=== PATIENT | male | born 1960 | race Two or more races ===

== ENCOUNTER → 2024-05-20 | Outpatient (BNVA) | payer OTHER, MEDICAID, SELFPAY | END | disposition home or self-care (01) | PROVIDERS: PCP Family Medicine; Referring Provider Family Medicine; Visit Provider Urology | DX: C61 Malignant neoplasm of prostate (principal); N39.3 Stress incontinence (female) (male); N52.9 Male erectile dysfunction, unspecified; I10 Essential (primary) hypertension; E11.9 Type 2 diabetes mellitus without complications; Z90.89 Acquired absence of other organs; E66.9 Obesity, unspecified; Z68.29 Body mass index [BMI] 29.0-29.9, adult | CPT/HCPCS: 81003; 99212; G0463 ==

== ENCOUNTER → 2024-11-21 | Outpatient (BNVA) | payer OTHER, MEDICAID, SELFPAY | END | disposition home or self-care (01) | PROVIDERS: PCP Family Medicine; Referring Provider Family Medicine; Visit Provider Urology | DX: C61 Malignant neoplasm of prostate (principal); E66.9 Obesity, unspecified; Z71.3 Dietary counseling and surveillance; Z68.30 Body mass index [BMI] 30.0-30.9, adult; I10 Essential (primary) hypertension | CPT/HCPCS: 81003; 99212; G0463 ==

== ENCOUNTER → 2025-01-04 | Outpatient (BNVA) | payer OTHER, MEDICAID, SELFPAY | END | disposition home or self-care (01) | PROVIDERS: PCP Family Medicine; Referring Provider Family Medicine; Visit Provider Student in an Organized Health Care Education/Training Program | DX: N52.9 Male erectile dysfunction, unspecified (principal); E11.9 Type 2 diabetes mellitus without complications; I10 Essential (primary) hypertension | CPT/HCPCS: 99212; 99213; G0463 ==

== ENCOUNTER → 2025-03-08 | Outpatient (BNVA) | payer OTHER, MEDICAID, SELFPAY | END | disposition home or self-care (01) | PROVIDERS: PCP Family Medicine; Referring Provider Family Medicine; Visit Provider Student in an Organized Health Care Education/Training Program | DX: Z48.816 Encounter for surgical aftercare following surgery on the genitourinary system (principal); I10 Essential (primary) hypertension | CPT/HCPCS: 81003; 99212; G0463 ==